=== PATIENT | female | born 1990 | race African-American/Black ===

== ENCOUNTER 2017-11-11 17:37 | Emergency (ER) | payer MEDICAID ==
[2017-11-11 18:26] LABS: #Basophils 0.1 thou/uL (0.0-0.2); #Eosinphils 0.2 thou/uL (0.0-0.7); #Lymphocytes 2.1 thou/uL (1.20-3.40); #Monocytes 0.6 thou/uL (0.11-0.59); #Neutrophils 5.8 thou/uL (1.40-6.50); %Basophils 0.8 % (0.0-1.0); %Eosinophils 2.5 % (0.0-10.0); %Lymphocytes 23.7 % (21.0-51.0); %Monocytes 7.3 % (0.0-10.0); %Neutrophils 65.6 % (42.0-75.0); Hemoglobin 10.4 g/dL (12.0-16.0); Mean Corpuscular HGB CONC 34.4 g/dL (32.0-36.0); Mean Corpuscular Hemoglobin 28.1 pg (27.0-31.0); Mean Corpuscular Volume 81.6 fL (78.0-98.0); Mean Platelet Volume 8.2 fL (7.4-10.4); Platelet Count 226 thou/uL (130-400); RBC Distribution Width 12.4 % (11.5-14.5); Red Blood Cell (RBC) Count 3.69 mill/uL (4.20-5.40); White Blood Cell (WBC) Count 8.8 thou/uL (4.8-10.8)
[2017-11-11 19:20] LABS: Bilirubin Negative (Negative); Blood, Urine Negative (Negative); Clarity CLEAR (Clear); Glucose, Urine (Dipstick) Negative (Negative); Leukocyte Trace (Negative); Nitrite Negative (Negative); Protein, Urine (Dipstick) Negative (Neg-Trace); Specific Gravity, Urine 1.009 (1.002-1.036); Urobilinogen 0.2 mg/dL (0.2-1.0)
[2017-11-11 19:22] LABS: Bacteria/HPF Rare-Few HPF (None Seen); Hyaline Casts/LPF 0-3 HYALINE CAST LPF (0-3 Hyaline); Pathc Cast-AUWi Flag 0.29 (0-2.49); RBC/HPF None Seen HPF (0-3); Squamous Epithelial 0-3 HPF (0-3); WBC/HPF 0-3 HPF (0-3)
== END 2017-11-11 19:59 | disposition left against medical advice (07) ==
LOC: ERS 17:37
DX: O46.8X9 Other antepartum hemorrhage, unspecified trimester (principal)
CPT/HCPCS: 36415; 81003; 81015; 84702; 85025; 86900; 86901; 99284

== ENCOUNTER 2020-07-25 21:47 | Emergency (ER) | END 2020-07-25 23:44 | disposition left against medical advice (07) | LOC: ERS 21:47 | DX: Z53.21 Procedure and treatment not carried out due to patient leaving prior to being seen by health care provider (principal) ==

== ENCOUNTER 2020-07-26 16:37 | Emergency (ER) | payer OTHER ==
[2020-07-26] MEDS ORDERED: HYDROcodone/Acetaminophen 5/325 mg Tablet ONE (18:00)
== END 2020-07-26 18:22 | disposition home or self-care (01) ==
LOC: ERS 16:37
DX: K03.81 Cracked tooth (principal); I10 Essential (primary) hypertension
CPT/HCPCS: 99283

== ENCOUNTER 2021-02-03 19:40 | Emergency (ER) | payer OTHER ==
[2021-02-03] MEDS ORDERED: Ketorolac Tromethamine 30 MG/ML VIAL ONE (23:03)
[2021-02-03] MEDS ORDERED: diphenhydrAMINE 25 MG CAP ONE (23:03)
[2021-02-03] MEDS ORDERED: Metoclopramide 10 MG/10 ML UDCUP ONE (23:03)
[2021-02-03] MEDS ORDERED: diphenhydrAMINE 50 MG/ML VIAL ONE (23:05)
[2021-02-03] MEDS ORDERED: Metoclopramide HCl 10 MG/2 ML VIAL ONE (23:05)
== END 2021-02-04 01:26 | disposition home or self-care (01) ==
LOC: ERS 19:40
DX: R51.9 Headache, unspecified (principal); J32.9 Chronic sinusitis, unspecified; I10 Essential (primary) hypertension
CPT/HCPCS: 70450; 96365; 96366; 96375; J1200; J1885; J2765

== ENCOUNTER 2021-10-05 03:16 | Emergency (ER) | payer OTHER ==
[2021-10-05] MEDS ORDERED: Ondansetron ODT 8 MG TAB ONE (03:34)
== END 2021-10-05 03:52 | disposition home or self-care (01) ==
LOC: ERS 03:16
DX: R11.2 Nausea with vomiting, unspecified (principal); I10 Essential (primary) hypertension; Z20.822 Contact with and (suspected) exposure to COVID-19; Z79.899 Other long term (current) drug therapy
CPT/HCPCS: 99284; Q0162; U0003; U0005